=== PATIENT | female | born 1945 | race Two or more races ===

== ENCOUNTER 2024-02-14 19:55 | Emergency (ER) | payer MEDICAID ==
[~2024-02-14] VITALS: Ht 165.1 cm; Wt 66.2 kg
[2024-02-14] MEDS: IV NORMAL SALINE 500 ML BAG IV ONE (20:38)
[2024-02-14 20:39] LABS: BASOPHILS # (AUTO) 0.1 K/UL (0.0-0.2); BASOPHILS % (AUTO) 0.8 % (0.0-2.0); HEMATOCRIT 44.6 % (31.2-41.9); HEMOGLOBIN 14.8 g/dL (10.9-14.3); LYMPHOCYTES # (AUTO) 0.7 K/uL (0.8-4.8); LYMPHOCYTES % (AUTO) 7.9 % (20.5-51.5); MEAN CORPUSCULAR HEMOGLOBIN 30.9 uug (24.7-32.8); MEAN CORPUSCULAR HGB CONC 33 g/dL (32.3-35.6); MEAN CORPUSCULAR VOLUME 93.5 fL (75.5-95.3); MONOCYTES # (AUTO) 0.9 K/uL (0.1-1.30); MONOCYTES % (AUTO) 9.8 % (0.0-11.0); NEUTROPHILS # (AUTO) 7.4 K/uL (1.8-8.9); NEUTROPHILS % (AUTO) 81.5 % (38.5-71.5); PLATELET COUNT (AUTO) 204 K/uL (179-408); RED BLOOD CELL COUNT(AUTO) 4.77 MIL/uL (3.63-4.92); WHITE BLOOD COUNT (AUTO) 9.1 K/uL (3.8-11.8)
[2024-02-14 20:41] LABS: CALCIUM 8.6 mg/dL (8.5-10.1); CREATININE 0.9 mg/dL (0.6-1.3); DIFFERENTIAL COMMENT 1; POTASSIUM 3.8 mmol/L (3.5-5.1)
[2024-02-14 20:47] LABS: ALBUMIN 3.8 g/dL (3.4-5.0); BILIRUBIN,TOTAL 0.8 mg/dL (0.2-1.0); MAGNESIUM 2.1 mg/dL (1.8-2.4); TOTAL PROTEIN, SERUM 7.7 g/dL (6.4-8.2)
[2024-02-14 21:23] VITALS: BP 142/89; TEMP 98.6; O2SAT 95
[2024-02-14] MEDS ORDERED: IV NORMAL SALINE 500 ML BAG IV ONE (21:45)
== END 2024-02-14 21:23 | disposition home or self-care (01) ==
LOC: ER 19:57
DX: R53.1 Weakness (principal); Z60.2 Problems related to living alone; W01.0XXA Fall on same level from slipping, tripping and stumbling without subsequent striking against object, initial encounter; Y93.89 Activity, other specified; Y92.89 Other specified places as the place of occurrence of the external cause; Y99.8 Other external cause status
CPT/HCPCS: 99284; 80053; 82550; 83735; 85025; 36415; 93005; 83605; J7040; A4606; A4663

== ENCOUNTER 2024-02-14 21:55 | Emergency (ER) | payer MEDICAID ==
[~2024-02-14] VITALS: Ht 165.1 cm; Wt 66.2 kg
[2024-02-14] MEDS ORDERED: levETIRAcetam 500 MG/5 ML VIAL IV ONE (23:11)
[2024-02-14] MEDS: levETIRAcetam IV 1,000 MG in IV DEXTROSE 5% 100 ML IV STA (23:25)
[2024-02-14] MEDS: LABETALOL HCL 100 MG/20 ML VIAL IV ONE (23:27)
[2024-02-15] MEDS: LABETALOL HCL 100 MG/20 ML VIAL IV ONE (00:59)
[2024-02-15 03:10] VITALS: BP 151/73
[2024-02-15] MEDS: LABETALOL HCL 100 MG/20 ML VIAL IV PRN (03:10)
[2024-02-15 05:52] LABS: BASOPHILS # (AUTO) 0.1 K/UL (0.0-0.2); BASOPHILS % (AUTO) 0.7 % (0.0-2.0); EOSINOPHILS % (AUTO) 0.1 % (0.0-7.0); HEMATOCRIT 42.7 % (31.2-41.9); HEMOGLOBIN 13.7 g/dL (10.9-14.3); LYMPHOCYTES # (AUTO) 1.4 K/uL (0.8-4.8); LYMPHOCYTES % (AUTO) 16.8 % (20.5-51.5); MEAN CORPUSCULAR HEMOGLOBIN 30.2 uug (24.7-32.8); MEAN CORPUSCULAR HGB CONC 32 g/dL (32.3-35.6); MONOCYTES # (AUTO) 0.9 K/uL (0.1-1.30); MONOCYTES % (AUTO) 11.7 % (0.0-11.0); NEUTROPHILS # (AUTO) 5.7 K/uL (1.8-8.9); NEUTROPHILS % (AUTO) 70.7 % (38.5-71.5); PLATELET COUNT (AUTO) 186 K/uL (179-408); RED BLOOD CELL COUNT(AUTO) 4.55 MIL/uL (3.63-4.92); RED CELL DISTRIBUTION WIDTH 14.5 % (12.3-17.7); WHITE BLOOD COUNT (AUTO) 8.1 K/uL (3.8-11.8)
[2024-02-15 05:54] LABS: DIFFERENTIAL COMMENT 1
[2024-02-15 06:00] LABS: CALCIUM 8.2 mg/dL (8.5-10.1); CARBON DIOXIDE 27 mmol/L (21-32); CHLORIDE 97 mmol/L (98-107); CREATININE 0.7 mg/dL (0.6-1.3); GLUCOSE 150 mg/dL (74-106); POTASSIUM 3.9 mmol/L (3.5-5.1); SODIUM SERUM 134 mmol/L (136-145); UREA NITROGEN, BLOOD 14 mg/dL (7-18)
[2024-02-15 06:05] LABS: ALANINE AMINOTRANSFERASE 24 U/L (14-59); ALBUMIN 3.3 g/dL (3.4-5.0); ALKALINE PHOSPHATASE 76 U/L (50-136); ASPARTATE AMINOTRANSFERASE 30 U/L (15-37); BILIRUBIN,TOTAL 0.8 mg/dL (0.2-1.0); MAGNESIUM 2.2 mg/dL (1.8-2.4); PHOSPHOROUS 3.4 mg/dL (2.5-4.9); TOTAL PROTEIN, SERUM 7.3 g/dL (6.4-8.2)
[2024-02-15 08:22] VITALS: O2SAT 98
== END 2024-02-15 08:25 | disposition short-term general hospital (02) ==
LOC: ER 21:57
DX: R53.1 Weakness (principal); R51.9 Headache, unspecified; Z60.2 Problems related to living alone; W18.39XA Other fall on same level, initial encounter; Y93.89 Activity, other specified; Y92.89 Other specified places as the place of occurrence of the external cause; Y99.8 Other external cause status
CPT/HCPCS: 99285; 70450; 96365; 71045; 96375; 85610; 86850; 86900; 86901; 36415 ×2; 72125; 80053; 83735; 84100; 85025; 96376; J3490; J1953 ×2; A4606; A4663